=== PATIENT | male | born 1990 | race Hispanic/Latino ===

== ENCOUNTER 2018-09-25 19:40 | Emergency (ER) | payer SELFPAY ==
--- NOTE | 2018-09-25 20:43 | RAD REPORT ---
EXAM DESCRIPTION: Jaime Single View09/25/2018 8:26 pm CLINICAL HISTORY: Chest pain COMPARISON: none FINDINGS: The lungs appear clear of acute infiltrate. The heart is normal size IMPRESSION: No acute abnormalities displayed
[2018-09-25 20:56] LABS: Absolute Lymphocytes (CBC) 2.1 K/uL (0.7-4.9); Absolute Monocytes 0.5 K/uL (0.1-1.3); Absolute Neutrophil 4.5 K/uL (1.8-8.0); Basophils % 0.8 % (0-1.3); Eosinophils % 2.1 % (0-4.4); Hematocrit 42.7 % (39.6-49.0); Lymphocytes % 29.2 % (15.3-44.8); MCH 30.8 pg (27.0-35.0); MPV 8.6 fL (7.6-11.3); RBC Red Blood Cell Count 4.69 M/uL (4.33-5.43)
[2018-09-25 20:58] LABS: Protime INR 0.96
[2018-09-25 21:08] LABS: Barbiturates NEGATIVE (NEGATIVE); Benzodiazepines NEGATIVE (NEGATIVE); Cocaine NEGATIVE (NEGATIVE); METHAMPHETAM NEGATIVE (NEGATIVE); Methadone NEGATIVE (NEGATIVE); Opiates NEGATIVE (NEGATIVE); Phencyclidine NEGATIVE (NEGATIVE); THC Cannibis NEGATIVE (NEGATIVE)
[2018-09-25 21:12] LABS: ALT/SGPT 40 U/L (12-78); AST/SGOT 23 U/L (15-37); Albumin 4.1 g/dL (3.4-5.0); Alkaline Phosphatase 55 U/L (45-117); BUN Blood Urea Nitrogen 12 mg/dL (7-18); Bicarbonate 25 mmol/L (21-32); Bilirubin Direct < 0.1 mg/dL (0-0.2); Bilirubin Total 0.3 mg/dL (0.2-1.0); Glucose Level 85 mg/dL (74-106); Magnesium 2.5 mg/dL (1.8-2.4); NT PRO-BNP 9 pg/mL (<125); Potassium 3.7 mmol/L (3.5-5.1); Protein, Total 7.3 g/dL (6.4-8.2); Sodium Level 140 mmol/L (136-145); Troponin (Emerg Dept Use Only) < 0.02 ng/mL (0.0-0.045)
--- NOTE | 2018-09-25 21:54 | EDPHYS ---
Physician Documentation [facility] Name: Archie Fishman Age: 28 yrs Sex: Male : 1990 Arrival Date: 09/25/2018 Time: 19:41 Bed 28 Private MD: ED Physician Matthew Grace HPI: 09/25 20:17 This 28 yrs old Male presents to ER via Ambulatory with complaints of Chest cp Pain. 20:17 The patient or guardian reports chest pain that is located primarily in the anterior cp chest wall, left. 20:17 The pain does not radiate. cp 20:17 The chest pain is described as a pressure. cp 20:17 Associated signs and symptoms: Pertinent negatives: abdominal pain, cough, diaphoresis, cp dizziness, lower extremity pain, lower extremity swelling, palpitations, recent travel, shortness of breath. Duration: The patient or guardian reports a single episode, that is still ongoing, but improving. Historical: - Allergies: 19:54 PENICILLINS; kr2 - Home Meds: 19:54 None [Active]; kr2 - PMHx: 19:54 None; kr2 - PSHx: 19:54 right eye; kr2 - Immunization history:: Adult Immunizations unknown. - Social history:: Smoking status: Patient/guardian denies using tobacco. - Ebola Screening: : No symptoms or risks identified at this time. ROS: 20:18 Eyes: Negative for injury, pain, redness, and discharge. cp 20:18 Constitutional: Negative for body aches, chills, fever, poor PO intake. 20:18 ENT: Negative for drainage from ear(s), ear pain, sore throat, difficulty swallowing, difficulty handling secretions. 20:18 Cardiovascular: Positive for chest pain, Negative for edema, palpitations. 20:18 Respiratory: Negative for cough, shortness of breath, wheezing. 20:18 Abdomen/GI: Negative for abdominal pain, nausea, vomiting, and diarrhea, constipation, black/tarry stool, rectal bleeding. 20:18 Back: Negative for pain at rest, pain with movement, radiated pain. 20:18 : Negative for urinary symptoms. 20:18 Skin: Negative for cellulitis, rash. 20:18 Neuro: Negative for altered mental status, dizziness, headache, speech changes, syncope, near syncope, weakness. 20:18 All other systems are negative. Exam: 20:25 Constitutional: The patient appears in no acute distress, alert, awake, cp non-diaphoretic, non-toxic, well developed, well nourished. 20:25 Head/Face: Normocephalic, atraumatic. Eyes: Pupils equal round and reactive to light, cp extra-ocular motions intact. Lids and lashes normal. Conjunctiva and sclera are non-icteric and not injected. Cornea within normal limits. Periorbital areas with no swelling, redness, or edema. ENT: Nares patent. No nasal discharge, no septal abnormalities noted. Tympanic membranes are normal and external auditory canals are clear. Oropharynx with no redness, swelling, or masses, exudates, or evidence of obstruction, uvula midline. Mucous membranes moist. Chest/axilla: Normal chest wall appearance and motion. Nontender with no deformity. No lesions are appreciated. Cardiovascular: Regular rate and rhythm with a normal S1 and S2. No gallops, murmurs, or rubs. Normal PMI, no JVD. No pulse deficits. Respiratory: Lungs have equal breath sounds bilaterally, clear to auscultation and percussion. No rales, rhonchi or wheezes noted. No increased work of breathing, no retractions or nasal flaring. Abdomen/GI: Soft, non-tender, with normal bowel sounds. No distension or tympany. No guarding or rebound. No evidence of tenderness throughout. Back: No spinal tenderness. No costovertebral tenderness. Full range of motion. Skin: Warm, dry with normal turgor. Normal color with no rashes, no lesions, and no evidence of cellulitis. Neuro: Awake and alert, GCS 15, oriented to person, place, time, and situation. Cranial nerves II-XII grossly intact. Motor strength 5/5 in all extremities. Sensory grossly intact. Cerebellar exam normal. Normal gait. 20:25 Neck: ROM/movement: is normal, is supple, without pain, no range of motions limitations, no nuchal rigidity. 21:05 ECG was reviewed by the Attending Physician. cp Vital Signs: 19:55 BP 125 / 96; Pulse 76; Resp 17; Temp 98; Pulse Ox 99% on R/A; Pain 8/10; kr2 21:00 BP 123 / 78; Pulse 80; Resp 18; Pulse Ox 100% on R/A; Pain 0/10; mg2 22:00 BP 122 / 70; Pulse 78; Resp 17; Pulse Ox 100% on R/A; mg2 MDM: 20:10 Patient medically screened. cp 21:00 Differential diagnosis: abnormal EKG, acute myocardial infarction, acute pericarditis, cp chest wall pain, costochondritis, pancreatitis, pericarditis, pneumonia, pneumothorax, pulmonary embolus, stable angina, unstable angina. 21:52 Data reviewed: vital signs, nurses notes, lab test result(s), EKG, radiologic studies, cp plain films. 21:52 Test interpretation: by ED physician or midlevel provider: ECG, plain radiologic cp studies. 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 Special discussion: Based on the patient's history, exam, and Dx evaluation, there is no indication for emergent intervention or inpatient Tx. It is understood by the patient/guardian that if the Sx's persist or worsen they need to return immediately for re-evaluation. 09/25 20:13 Order name: Basic Metabolic Panel; Complete Time: 21:17 09/25 21:17 Interpretation: Normal except: CL 108; GFR 79. 09/25 20:13 Order name: CBC with Diff; Complete Time: 21:17 09/25 20:13 Order name: LFT's; Complete Time: 21:17 09/25 20:13 Order name: Magnesium; Complete Time: 21:17 09/25 21:18 Interpretation: MG 2.5; Reviewed. 09/25 20:13 Order name: NT PRO-BNP; Complete Time: 21:17 09/25 20:13 Order name: PT-INR; Complete Time: 21:17 09/25 20:13 Order name: Troponin (emerg Dept Use Only); Complete Time: 21:17 09/25 21:18 Interpretation: Within normal limits: TROPED < 0.02. 09/25 20:13 Order name: XRAY Chest (1 view); Complete Time: 21:17 09/25 20:13 Order name: EKG; Complete Time: 20:14 cp 09/25 20:13 Order name: Cardiac monitoring; Complete Time: 20:59 cp 09/25 20:13 Order name: EKG - Nurse/Tech; Complete Time: 20:59 cp 09/25 20:13 Order name: IV Saline Lock; Complete Time: 20:59 cp 09/25 20:13 Order name: UDS; Complete Time: 21:17 cp 09/25 22:02 Order name: Urine Dipstick--Ancillary (enter results); Complete Time: 22:16 em 09/25 20:13 Order name: Labs collected and sent; Complete Time: 20:59 cp 09/25 20:13 Order name: O2 Per Protocol; Complete Time: 20:59 cp 09/25 20:13 Order name: O2 Sat Monitoring; Complete Time: 20:59 cp EC:05 Rate is 62 beats/min. Rhythm is regular. [place] interval is normal. QRS interval is normal. cp QT interval is normal. Interpreted by me. Reviewed by me. Administered Medications: No medications were administered Disposition: 09/26 06:51 Co-signature as Attending Physician, Matthew Grace MD I agree with the assessment and fl plan of care. Disposition: 09/25/18 21:53 Discharged to Home. Impression: Chest pain, unspecified. - Condition is Stable. - Discharge Instructions: Nonspecific Chest Pain. - Prescriptions for Ibuprofen 800 mg Oral Tablet - take 1 tablet by ORAL route every 8 hours As needed take with food; 30 tablet. - Medication Reconciliation Form, Thank You Letter, Antibiotic Education, Prescription Opioid Use form. - Follow up: Logan Emmanuel MD; When: 2 - 3 days; Reason: chest pain. - Problem is new. - Symptoms have improved. Signatures: Dispatcher [employer] EDMS Damaso Valle PA PA cp Appiah, William, MD MD wa Reaves, Karey RN RN kr2 Yonatan Banda, MICHEAL RN mg2 Corrections: (The following items were deleted from the chart) 09/25 22:28 21:53 09/25/2018 21:53 Discharged to Home. Impression: Chest pain, unspecified. mg2 Condition is Stable. Forms are Medication Reconciliation Form, Thank You Letter, Antibiotic Education, Prescription Opioid Use. Follow up: Logan Emmanuel; When: 2 - 3 days; Reason: chest pain. Problem is new. Symptoms have improved. cp
--- NOTE | 2018-09-25 21:54 | ER ---
Nurse's Notes [facility] Name: Archie Fishman Age: 28 yrs Sex: Male : 1990 Arrival Date: 09/25/2018 Time: 19:41 Bed 28 Private MD: Diagnosis: Chest pain, unspecified Presentation: 09/25 19:52 Presenting complaint: Patient states: I have been having chest pain in the left side of kr2 my chest that started last night. Transition of care: patient was not received from another setting of care. Onset of symptoms was September 24, 2018. Risk Assessment: Do you want to hurt yourself or someone else? Patient reports no desire to harm self or others. Initial Sepsis Screen: Does the patient meet any 2 criteria? No. Patient's initial sepsis screen is negative. Does the patient have a suspected source of infection? No. Patient's initial sepsis screen is negative. Care prior to arrival: None. 19:52 Method Of Arrival: Ambulatory kr2 19:52 Acuity: MARK 3 kr2 Triage Assessment: 19:54 General: Appears in no apparent distress. uncomfortable, Behavior is calm, cooperative, kr2 appropriate for age. Pain: Complains of pain in anterior aspect of left upper chest Pain does not radiate. Pain currently is 8 out of 10 on a pain scale. Quality of pain is described as pressure, squeezing, Pain began last night Is continuous, Alleviated by nothing. Cardiovascular: Capillary refill < 3 seconds in bilateral fingers Patient's skin is warm and dry. Rhythm is sinus rhythm. Historical: - Allergies: 19:54 PENICILLINS; kr2 - Home Meds: 19:54 None [Active]; kr2 - PMHx: 19:54 None; kr2 - PSHx: 19:54 right eye; kr2 - Immunization history:: Adult Immunizations unknown. - Social history:: Smoking status: Patient/guardian denies using tobacco. - Ebola Screening: : No symptoms or risks identified at this time. Screenin:00 Abuse screen: Denies threats or abuse. Denies injuries from another. Nutritional mg2 screening: No deficits noted. Tuberculosis screening: No symptoms or risk factors identified. Fall Risk IV access (20 points). Assessment: 20:59 General: Appears in no apparent distress. comfortable, Behavior is calm, cooperative. mg2 Pain: Complains of pain in chest and anterior aspect of left upper chest. Pain: Pain radiates to back. Neuro: No deficits noted. Cardiovascular: Chest pain is described as vague. Respiratory: Airway is patent Respiratory effort is even, unlabored, Respiratory pattern is regular, symmetrical. GI: No signs and/or symptoms were reported involving the gastrointestinal system. : No signs and/or symptoms were reported regarding the genitourinary system. EENT: No signs and/or symptoms were reported regarding the EENT system. Derm: Skin is intact, is healthy with good turgor, Skin is pink, warm \T\ dry. normal. Musculoskeletal: No signs and/or symptoms reported regarding the musculoskeletal system. 21:30 Reassessment: Patient appears in no apparent distress at this time. Patient and/or mg2 family updated on plan of care and expected duration. Pain level reassessed. Patient is alert, oriented x 3, equal unlabored respirations, skin warm/dry/pink. Vital Signs: 19:55 BP 125 / 96; Pulse 76; Resp 17; Temp 98; Pulse Ox 99% on R/A; Pain 8/10; kr2 21:00 BP 123 / 78; Pulse 80; Resp 18; Pulse Ox 100% on R/A; Pain 0/10; mg2 22:00 BP 122 / 70; Pulse 78; Resp 17; Pulse Ox 100% on R/A; mg2 ED Course: 19:41 Patient arrived in ED. am2 19:53 Triage completed. kr2 19:55 Patient has correct armband on for positive identification. Bed in low position. Call kr2 light in reach. Side rails up X 1. Adult w/ patient. secured entrance monitor on. Pulse ox on. NIBP on. Door closed. Head of bed elevated. 19:55 Patient maintains SpO2 saturation greater than 95% on room air. kr2 20:00 Arm band placed on right wrist. mg2 20:10 Damaso Valle PA is PHCP. cp 20:10 Matthew Grace MD is Attending Physician. cp 20:22 Yonatan Banda, MICHEAL is Primary Nurse. mg2 20:25 XRAY Chest (1 view) In Process Unspecified. EDMS 20:59 Inserted saline lock: 20 gauge in right antecubital area, using aseptic technique. mg2 Blood collected. 21:00 No provider procedures requiring assistance completed. mg2 21:52 Logan Emmanuel MD is Referral Physician. cp 22:25 IV discontinued, intact, bleeding controlled, No redness/swelling at site. Pressure mg2 dressing applied. Administered Medications: No medications were administered Outcome: 21:53 Discharge ordered by MD. cp 22:27 Discharged to home ambulatory, with family. mg2 22:27 Condition: stable 22:27 Discharge instructions given to patient, family, Instructed on discharge instructions, follow up and referral plans. medication usage, Demonstrated understanding of instructions, follow-up care, medications, Prescriptions given X 1. 22:28 Patient left the ED. mg2 Signatures: Dispatcher [employer] EDMS Damaso Valle PA PA cp Moreno, Amanda am2 Adrianne Jennings, RN RN kr2 Yonatan Banda RN RN mg2
[2018-09-25 22:10] LABS: Urine Blood NEGATIVE (NEG); Urine Glucose NEGATIVE (NEG); Urine Protein NEGATIVE (NEG)
--- NOTE | 2018-09-26 06:36 | EKG ---
Test Date: 2018-09-25 Test Time: 20:57:07 Slusher Operator: MG MEASUREMENT RESULTS: Intervals: Rate: 62 WI: 148 QRSD: 88 QT: 366 QTc: 371 Dewitt: P: 67 WI: 148 QRS: 89 T: 51 INTERPRETIVE STATEMENTS: Normal sinus rhythm Normal ECG No previous ECG available for comparison Electronically Signed On 09-26-18 06:35:58 CDT by Logan Emmanuel
== END 2018-09-25 22:28 | disposition home or self-care (01) ==
LOC: ER 19:40
DX: R07.9 Chest pain, unspecified (principal); Z88.0 Allergy status to penicillin
CPT/HCPCS: 36415; 71045; 80048; 80076; 80307; 81003; 83735; 83880; 84484; 85025; 85610; 93005; 99285

== ENCOUNTER 2020-02-07 12:56 | Emergency (ER) | payer BC ==
[2020-02-07] MEDS ORDERED: AZITHROMYCIN 250 MG TAB ONE (15:09)
[2020-02-07] MEDS ORDERED: ONDANSETRON 4 MG (ODT) TAB ONE (15:09)
--- NOTE | 2020-02-07 15:28 | ER ---
Nurse's Notes [facility] Name: Archie Fishman Age: 29 yrs Sex: Male : 1990 Arrival Date: 02/07/2020 Time: 13:06 Bed 5 Private MD: None, None Diagnosis: Cough;Acute upper respiratory infection, unspecified Presentation: 02/06 13:31 Chief complaint: Patient states: seen by doctor 2 days ago and was given antibiotics, dm5 but I am getting worse. I am now having pain in lower back and RLQ Pain rate at 7/10. Coronavirus screen: The patient has NOT traveled to a country currently being monitored by the [facility] within the last 14 days. Proceed with normal triage procedures. The patient has NOT had contact with any known and/or suspected case of coronavirus. Proceed with normal triage procedures. Ebola Screen: Patient negative for fever greater than or equal to 101.5 degrees Fahrenheit, and additional compatible Ebola Virus Disease symptoms Patient denies exposure to infectious person. Patient denies travel to an Ebola-affected area in the 21 days before illness onset. No symptoms or risks identified at this time. Initial Sepsis Screen: Does the patient meet any 2 criteria? No. Patient's initial sepsis screen is negative. Does the patient have a suspected source of infection? No. Patient's initial sepsis screen is negative. Risk Assessment: Do you want to hurt yourself or someone else? Patient reports no desire to harm self or others. 13:31 Method Of Arrival: Ambulatory dm5 13:31 Acuity: MARK 3 dm5 Historical: - Allergies: 15:18 PENICILLINS; sv 15:23 Bactrim; dm5 - PSHx: 15:18 right eye; sv - Immunization history:: Adult Immunizations up to date. - Family history:: not pertinent. - Social history:: Smoking status: . Screenin:24 Abuse screen: Denies threats or abuse. Denies injuries from another. Nutritional dm5 screening: No deficits noted. Tuberculosis screening: No symptoms or risk factors identified. Fall Risk None identified. Assessment: 14:30 General: Appears in no apparent distress. Behavior is calm, cooperative. Pain: Pain hb currently is 10 out of 10 on a pain scale. Neuro: Level of Consciousness is awake, alert, obeys commands, Oriented to person, place, time, situation. Cardiovascular: Capillary refill < 3 seconds Patient's skin is warm and dry. Respiratory: Airway is patent Respiratory effort is even, unlabored, Respiratory pattern is regular, symmetrical, Breath sounds are clear bilaterally. GI: No signs and/or symptoms were reported involving the gastrointestinal system. : No signs and/or symptoms were reported regarding the genitourinary system. EENT: Throat is clear. Derm: Skin is intact, is healthy with good turgor, Skin is pink, warm \T\ dry. Musculoskeletal: No signs and/or symptoms reported regarding the musculoskeletal system. 15:30 Reassessment: Patient appears in no apparent distress at this time. Patient and/or hb family updated on plan of care and expected duration. Pain level reassessed. Patient is alert, oriented x 3, equal unlabored respirations, skin warm/dry/pink. 15:37 Reassessment: Pt c/o right flank pain. Dr. Gonzalez notified. hb 16:15 Reassessment: Patient appears in no apparent distress at this time. Patient and/or hb family updated on plan of care and expected duration. Pain level reassessed. Patient is alert, oriented x 3, equal unlabored respirations, skin warm/dry/pink. Vital Signs: 13:31 BP 135 / 96; Pulse 90; Resp 16; Temp 98.5; Pulse Ox 99% ; Weight 70.31 kg; Height 5 ft. dm5 3 in. (160.02 cm); Pain 7/10; 15:00 BP 126 / 82; Pulse 87; Resp 15; Pulse Ox 97% on R/A; Pain 10/10; hb 16:00 BP 124 / 80; Pulse 86; Resp 14; Pulse Ox 100% ; hb 13:31 Body Mass Index 27.46 (70.31 kg, 160.02 cm) dm5 ED Course: 13:06 Patient arrived in ED. mr 13:06 None, None is Private Physician. mr 13:33 Triage completed. dm5 14:15 Damaso Gonzalez MD is Attending Physician. flor 15:00 Patient has correct armband on for positive identification. Bed in low position. Call hb light in reach. 15:24 Arm band placed on. dm5 15:46 Inserted saline lock: 22 gauge in right antecubital area, using aseptic technique. hb Blood collected. 15:48 Alley De, RN is Primary Nurse. hb 16:03 CT completed. Patient tolerated procedure well. Patient moved back from CT. bq 16:05 CT Abd/Pelvis - IV Contrast Only In Process Unspecified. EDMS 16:19 Urine Dipstick--Ancillary (enter results) Sent. hb 16:47 No provider procedures requiring assistance completed. IV discontinued, intact, hb bleeding controlled, No redness/swelling at site. Pressure dressing applied. Administered Medications: 15:02 Drug: Zofran (Ondansetron) 4 mg Route: PO; dm5 16:19 Follow up: Response: No adverse reaction hb 15:26 Not Given (Duplicate Order): Zithromax 500 mg PO once flor 15:31 Drug: Zithromax 250 mg Route: PO; dm5 16:18 Follow up: Response: No adverse reaction hb 15:31 Drug: Motrin 600 mg Route: PO; dm5 16:18 Follow up: Response: No adverse reaction hb 15:53 Drug: NS 0.9% 1000 ml Route: IV; Rate: 1 bolus; Site: right antecubital; hb 16:45 Follow up: Response: No adverse reaction; IV Status: Completed infusion; IV Intake: hb 1000ml Intake: 16:45 IV: 1000ml; Total: 1000ml. hb Outcome: 15:27 Discharge ordered by MD. flor 16:27 Discharge ordered by MD. flor 16:47 Discharged to home ambulatory, with family. hb 16:47 Condition: stable 16:47 Discharge instructions given to patient, Instructed on discharge instructions, follow up and referral plans. medication usage, Demonstrated understanding of instructions, follow-up care, medications, Prescriptions given X 1. 16:48 Patient left the ED. hb Signatures: Dispatcher [employer] EDKeri Cantu, RN RN dmSharonda Milian RN Damaso Orellana MD MD cha Rivera, Kenyetta mr CharmaineeverettJackie Heather, MICHEAL RN hb
--- NOTE | 2020-02-07 15:29 | EDPHYS ---
Physician Documentation [facility] Name: Archie Fishman Age: 29 yrs Sex: Male : 1990 Arrival Date: 02/07/2020 Time: 13:06 Bed 5 Private MD: None, None ED Physician Damaso Gonzalez HPI: 02/06 14:36 This 29 yrs old Male presents to ER via Ambulatory with complaints of Cough, flor Sore Throat, Back Pain, Abdominal Pain. 14:36 The patient or guardian reports cough, flu symptoms, arthralgias, low-grade fever, flor myalgias. Onset: The symptoms/episode began/occurred 3 day(s) ago. Severity of symptoms: At their worst the symptoms were mild, in the emergency department the symptoms are unchanged. Modifying factors: The symptoms are alleviated by nothing, the symptoms are aggravated by nothing. Associated signs and symptoms: The patient has no apparent associated signs or symptoms. The patient has not experienced similar symptoms in the past. Historical: - Allergies: 15:18 PENICILLINS; sv 15:23 Bactrim; dm5 - PSHx: 15:18 right eye; sv - Immunization history:: Adult Immunizations up to date. - Family history:: not pertinent. - Social history:: Smoking status: . ROS: 14:36 Constitutional: Negative for fever, chills, and weight loss, Eyes: Negative for injury, flor pain, redness, and discharge, ENT: Negative for injury, pain, and discharge, Neck: Negative for injury, pain, and swelling, Cardiovascular: Negative for chest pain, palpitations, and edema, Abdomen/GI: Negative for abdominal pain, nausea, vomiting, diarrhea, and constipation, Back: Negative for injury and pain, : Negative for injury, bleeding, discharge, and swelling, MS/Extremity: Negative for injury and deformity, Skin: Negative for injury, rash, and discoloration, Neuro: Negative for headache, weakness, numbness, tingling, and seizure, Psych: Negative for depression, anxiety, suicide ideation, homicidal ideation, and hallucinations, Allergy/Immunology: Negative for hives, rash, and allergies, Endocrine: Negative for neck swelling, polydipsia, polyuria, polyphagia, and marked weight changes, Hematologic/Lymphatic: Negative for swollen nodes, abnormal bleeding, and unusual bruising. 14:36 Respiratory: Positive for cough. Exam: 14:36 Constitutional: This is a well developed, well nourished patient who is awake, alert, flor and in no acute distress. Head/Face: Normocephalic, atraumatic. Eyes: Pupils equal round and reactive to light, extra-ocular motions intact. Lids and lashes normal. Conjunctiva and sclera are non-icteric and not injected. Cornea within normal limits. Periorbital areas with no swelling, redness, or edema. ENT: Nares patent. No nasal discharge, no septal abnormalities noted. Tympanic membranes are normal and external auditory canals are clear. Oropharynx with no redness, swelling, or masses, exudates, or evidence of obstruction, uvula midline. Mucous membranes moist. Neck: Trachea midline, no thyromegaly or masses palpated, and no cervical lymphadenopathy. Supple, full range of motion without nuchal rigidity, or vertebral point tenderness. No Meningismus. Chest/axilla: Normal chest wall appearance and motion. Nontender with no deformity. No lesions are appreciated. Cardiovascular: Regular rate and rhythm with a normal S1 and S2. No gallops, murmurs, or rubs. Normal PMI, no JVD. No pulse deficits. Respiratory: Lungs have equal breath sounds bilaterally, clear to auscultation and percussion. No rales, rhonchi or wheezes noted. No increased work of breathing, no retractions or nasal flaring. Abdomen/GI: Soft, non-tender, with normal bowel sounds. No distension or tympany. No guarding or rebound. No evidence of tenderness throughout. Back: No spinal tenderness. No costovertebral tenderness. Full range of motion. Male : Normal genitalia with no discharge or lesions. Skin: Warm, dry with normal turgor. Normal color with no rashes, no lesions, and no evidence of cellulitis. Vital Signs: 13:31 BP 135 / 96; Pulse 90; Resp 16; Temp 98.5; Pulse Ox 99% ; Weight 70.31 kg; Height 5 ft. dm5 3 in. (160.02 cm); Pain 7/10; 15:00 BP 126 / 82; Pulse 87; Resp 15; Pulse Ox 97% on R/A; Pain 10/10; hb 16:00 BP 124 / 80; Pulse 86; Resp 14; Pulse Ox 100% ; hb 13:31 Body Mass Index 27.46 (70.31 kg, 160.02 cm) dm5 MDM: 14:15 Patient medically screened. [facility] 14:38 Data reviewed: vital signs, nurses notes. [facility] 02/06 14:36 Order name: Influenza Screen (a \T\ B); Complete Time: 15:25 [facility] 02/06 15:34 Order name: CBC with Diff; Complete Time: 16:20 [facility] 02/06 15:34 Order name: Comprehensive Metabolic Panel; Complete Time: 16:27 [facility] 02/06 15:34 Order name: CT Abd/Pelvis - IV Contrast Only; Complete Time: 16:27 [facility] 02/06 16:18 Order name: Urine Dipstick--Ancillary (enter results) 02/06 15:34 Order name: Urine Dipstick-Ancillary (obtain specimen); Complete Time: 16:19 [facility] Administered Medications: 15:02 Drug: Zofran (Ondansetron) 4 mg Route: PO; dm5 16:19 Follow up: Response: No adverse reaction hb 15:26 Not Given (Duplicate Order): Zithromax 500 mg PO once [facility] 15:31 Drug: Zithromax 250 mg Route: PO; dm5 16:18 Follow up: Response: No adverse reaction hb 15:31 Drug: Motrin 600 mg Route: PO; dm5 16:18 Follow up: Response: No adverse reaction hb 15:53 Drug: NS 0.9% 1000 ml Route: IV; Rate: 1 bolus; Site: right antecubital; hb 16:45 Follow up: Response: No adverse reaction; IV Status: Completed infusion; IV Intake: hb 1000ml Disposition: 02/07/20 16:27 Discharged to Home. Impression: Cough, Acute upper respiratory infection, unspecified. - Condition is Stable. - Discharge Instructions: Abdominal Pain, Adult, Upper Respiratory Infection, Adult, Abdominal Pain, Adult, [id number], Upper Respiratory Infection, Adult, [id number], Cough, Adult, Xenm-nk-Urqa, Cough, Adult. - Prescriptions for Bromfed DM 2- 30-10 mg/5 mL Oral syrup - take 10 milliliter by ORAL route every 4 hours; 160 milliliter. - Medication Reconciliation Form, Thank You Letter, Antibiotic Education, Prescription Opioid Use form. - Follow up: Private Physician; When: 2 - 3 days; Reason: Recheck today's complaints, Continuance of care, Re-evaluation by your physician. - Problem is new. - Symptoms have improved. 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 Impression: Cough; Acute upper respiratory flor infection, unspecified. Condition is Stable. Discharge Instructions: Upper Respiratory Infection, Adult, Upper Respiratory Infection, Adult, [id number], Cough, Adult, [id number]-[id number], Cough, Adult. Prescriptions for Bromfed DM 2-30-10 mg/5 mL Oral syrup - take 10 milliliter by ORAL route every 4 hours; 160 milliliter, Zithromax Z-Tapan 250 mg Oral Tablet - take 1 tablet by ORAL route as directed for 5 days Day 1 - take two (2) tablets one time. Day 2, 3, 4 , 5 take one (1) tablet once daily.; 6 tablet. and Forms are Medication Reconciliation Form, Thank You Letter, Antibiotic Education, Prescription Opioid Use. Follow up: Private Physician; When: 2 - 3 days; Reason: Recheck today's complaints, Continuance of care, Re-evaluation by your physician. Problem is new. Symptoms have improved. [facility] 16:48 16:27 02/07/2020 16:27 Discharged to Home. Impression: Cough; Acute upper respiratory hb infection, unspecified. Condition is Stable. Discharge Instructions: Abdominal Pain, Adult, Upper Respiratory Infection, Adult, Abdominal Pain, Adult, [id number]-[id number], Upper Respiratory Infection, Adult, Gxka-[id number], Cough, Adult, Chac-hr-Qxcv, Cough, Adult. Prescriptions for Bromfed DM 2-30-10 mg/5 mL Oral syrup - take 10 milliliter by ORAL route every 4 hours; 160 milliliter, Bromfed DM 2-30-10 mg/5 mL Oral syrup - take 10 milliliter by ORAL route every 4 hours; 160 milliliter. and Forms are Medication Reconciliation Form, Thank You Letter, Antibiotic Education, Prescription Opioid Use. Follow up: Private Physician; When: 2 - 3 days; Reason: Recheck today's complaints, Continuance of care, Re-evaluation by your physician. Problem is new. Symptoms have improved. flor
[2020-02-07] MEDS ORDERED: IBUPROFEN 200 MG TAB PO ONE (15:32)
[2020-02-07] MEDS ORDERED: NA CHLORIDE 0.9% 1,000 ML ONE (15:40)
[2020-02-07 16:04] LABS: Absolute Lymphocytes (CBC) 0.7 K/uL (0.7-4.9); Basophils % 0.6 % (0-1.3); Hematocrit 43.4 % (39.6-49.0); MPV 8.1 fL (7.6-11.3); RBC Red Blood Cell Count 4.82 M/uL (4.33-5.43)
--- NOTE | 2020-02-07 16:18 | RAD REPORT ---
EXAM DESCRIPTION: CT - Abdomen Pelvis W Contrast - 02/07/2020 4:03 pm CLINICAL HISTORY: ABD PAINright lower quadrant pain COMPARISON: No comparisons TECHNIQUE: Biphasic, helical CT imaging of the abdomen and pelvis was performed following 100 ml non -ionic IV contrast. No oral contrast given. All CT scans are performed using dose optimization technique as appropriate and may include automated exposure control or mA/KV adjustment according to patient size. FINDINGS: No suspicious findings in the lung bases. The liver, spleen, and pancreas show no suspicious findings. Gallbladder and biliary tree are also wi thout suspicious finding. Liver attenuation is borderline for fatty infiltration. Symmetric renal function is seen with no hydronephrosis or suspicious renal mass. No pyelonephritis o r acute parenchymal process. No bladder abnormalities. No adrenal abnormalities. No dilated bowel loops or bowel wall thickening. The appendix is normal. No free air, free fluid or i nflammatory stranding. No hernia, mass or bulky lymphadenopathy. No suspicious bony findings. IMPRESSION: No appendicitis or acute right lower quadrant abnormality. Contrast enhanced CT abdomen and pelvis showing no significant or suspicious finding.
[2020-02-07 16:19] LABS: ALT/SGPT 41 U/L (12-78); AST/SGOT 17 U/L (15-37); Alkaline Phosphatase 58 U/L (45-117); BUN Blood Urea Nitrogen 8 mg/dL (7-18); Bicarbonate 28 mmol/L (21-32); Bilirubin Total 0.3 mg/dL (0.2-1.0); Glucose Level 87 mg/dL (74-106); Protein, Total 7.4 g/dL (6.4-8.2); Sodium Level 139 mmol/L (136-145)
[2020-02-07 16:49] LABS: Urine Blood TRACE (NEG); Urine Glucose NEGATIVE (NEG); Urine Protein NEGATIVE (NEG); Urine Specific Gravity 1.015 (1.005-1.030); Urine pH 6.5 (5.0-7.0)
[2020-02-07 17:05] VITALS: TEMP 98.5
[2020-02-07 17:08] VITALS: BP 124/80; O2SAT 100
== END 2020-02-07 16:48 | disposition home or self-care (01) ==
LOC: ER 12:56
DX: J06.9 Acute upper respiratory infection, unspecified (principal); Z88.0 Allergy status to penicillin; Z88.1 Allergy status to other antibiotic agents
CPT/HCPCS: 85025; 36415; 81003; 80053; 87804 ×2; 74177; 96360; 99284; Q9967; J7030